=== PATIENT | male | born 1965 | race Caucasian/White ===

== ENCOUNTER 2019-09-12 19:59 | Emergency (ER) | payer MEDICARE ==
[2019-09-12 20:08] VITALS: TEMP 97.4
[2019-09-12] MEDS ORDERED: HYDROmorphone 2 MG TAB PO STA (20:35)
--- NOTE | 2019-09-12 21:21 | ED ---
Recheck HPI - General Chief Complaint: Recheck/Abnormal Lab/Rx Stated Complaint: med refill Time Seen by Provider: 09/12/19 20:11 Source: patient, RN notes reviewed Mode of arrival: ambulatory Limitations: no limitations - History of Present Illness Initial Comments: This is a 54-year-old male with a history of chronic back disease multiple abdominal surgeries and abdominal adhesions who is on chronic pain medications for the above. He is from [place] and did not bring his medications with him to [place] where he'll be working for next several weeks. He does present with complaints of pain to the above-mentioned locations he ran out of pain medications this morning. He states he will be getting his prescription filled and [place] and transferred to [facility] within the week. He denies any fevers chills nausea vomiting sweats cough or other symptoms. - Related Data Previous Rx's Medication Instructions Recorded HYDROmorphone [Dilaudid] 4 mg PO Q6H PRN 3 Days #28 tab 09/12/19 Allergies Allergy/AdvReac Type Severity Reaction Status Date / Time No Known Allergies Allergy Verified 09/12/19 20:03 Review of Systems ROS Statement: Those systems with pertinent positive or pertinent negative responses have been documented in the HPI. ROS Other: All systems not noted in ROS Statement are negative. Past Medical History Past Medical History: Diabetes Mellitus, Hypertension, Pneumonia Past Surgical History: Appendectomy, Back Surgery, Bowel Resection, Orthopedic Surgery Additional Past Surgical History / Comment(s): spinal stimulator Past Psychological History: No Psychological Hx Reported Smoking Status: Never smoker Past Alcohol Use History: None Reported Past Drug Use History: None Reported General Exam - General Exam Comments Initial Comments: This is a well-developed well-nourished awake alert oriented times 3 male Limitations: no limitations General appearance: alert, anxious, in distress (I'll distress) Head exam: Present: atraumatic, normocephalic, normal inspection Eye exam: Present: normal appearance, PERRL, EOMI. Absent: scleral icterus, conjunctival injection, periorbital swelling ENT exam: Present: normal exam, mucous membranes moist Neck exam: Present: normal inspection. Absent: tenderness, meningismus, lymphadenopathy Respiratory exam: Present: normal lung sounds bilaterally. Absent: respiratory distress, wheezes, rales, rhonchi, stridor Cardiovascular Exam: Present: regular rate, normal rhythm, normal heart sounds. Absent: systolic murmur, diastolic murmur, rubs, gallop, clicks GI/Abdominal exam: Present: soft, normal bowel sounds. Absent: distended, tenderness, guarding, rebound, rigid Extremities exam: Present: normal inspection, full ROM, normal capillary refill. Absent: tenderness, pedal edema, joint swelling, calf tenderness Back exam: Present: normal inspection Neurological exam: Present: alert, oriented X3, CN II-XII intact Psychiatric exam: Present: normal affect, normal mood Skin exam: Present: warm, dry, intact, normal color. Absent: rash Course Vital Signs 09/12/19 20:05 Temperature 97.4 F L Pulse Rate 81 Respiratory 18 Rate Blood Pressure 164/102 O2 Sat by Pulse 98 Oximetry Medical Decision Making - Medical Decision Making Patient will be given a prescription for one week of his chronic pain medications. He is a follow-up outpatient when necessary Disposition Clinical Impression: Encounter for medication refill, Chronic pain disorder Disposition: HOME SELF-CARE Condition: Good Instructions (If sedation given, give patient instructions): Chronic Pain (ED), Pain Management (ED) Prescriptions: HYDROmorphone [Dilaudid] 4 mg PO Q6H PRN 3 Days #28 tab PRN Reason: Pain Is patient prescribed a controlled substance at d/c from ED?: Yes When asked, does pt state using other controlled substances?: Yes If prescribed controlled substance>3 days was MAPS reviewed?: Yes If opioid is for acute pain is fill amount 7 days or less?: Yes If Rx opioid, was Start Talking consent form obtained?: Yes Referrals: Nonstaff,Physician [Primary Care Provider] - 1-2 days
[2019-09-12 21:26] VITALS: BP 156/89; PULSE 80; RESP 20
== END 2019-09-12 21:28 | disposition home or self-care (01) ==
LOC: EC 19:59
DX: G89.29 Other chronic pain (principal); R10.9 Unspecified abdominal pain; Z76.0 Encounter for issue of repeat prescription; Z90.49 Acquired absence of other specified parts of digestive tract; Z98.890 Other specified postprocedural states
CPT/HCPCS: 99281